=== PATIENT | male | born 1945 | race Caucasian/White ===

== ENCOUNTER 2023-06-17 16:31 | Observation (INO) | payer MEDICARE, SELFPAY ==
--- NOTE | ~2023-06-17 | XR_ITS ---
EXAMINATION: XR chest 1V portable DATE: 06/17/2023 17:41 INDICATION: Altered mental status. TECHNIQUE: A single frontal view of the chest was obtained. COMPARISON: None. FINDINGS: There is no pneumonia, pleural effusion, or pneumothorax. The heart size is normal. Surgica l clips in the right upper quadrant are likely from cholecystectomy. IMPRESSION: 1. No acute cardiopulmonary disease. Reviewed, dictated and finalized at location E.
--- NOTE | ~2023-06-17 | CT_ITS ---
EXAMINATION: CT brain wo con DATE: 06/17/2023 17:27 INDICATION: Altered mental status. TECHNIQUE: Computed tomography (CT) of the head was performed without intravenous contrast. The mA wa s adjusted according to patient size. Iterative reconstruction technique was employed. The dose-lengt h product was 605.33 mGy-cm. COMPARISON: None FINDINGS: There is acute intraparenchymal hematoma involving the left basal ganglia. There is acute i ntraventricular hematoma in the lateral ventricles, third ventricle, and fourth ventricle. There are scattered areas of low attenuation in the cerebral white matter. There are old lacunar infarcts in th e bilateral basal ganglia, dai, and left thalamus. The ventricles are normal in size for the degree of brain volume loss. There is mild mucosal thickening in the ethmoid sinuses. The mastoid air cells are normal. There is cerumen in the external auditory canals. There are likely changes of ocular lens replacement surgeries. IMPRESSION: 1. Acute intraparenchymal hematoma in the left basal ganglia with extension into the ventricles. 2. Old lacunar infarcts in the bilateral basal ganglia, left thalamus, and dai. 3. Extensive nonspecific cerebral white matter disease, which likely represents chronic small vessel ischemic disease. Reviewed, dictated and finalized at location E. IMPRESSION: 1. Acute intraparenchymal hematoma in the left basal ganglia with extension int o the ventricles. 2. Old lacunar infarcts in the bilateral basal ganglia, left thalamus, and dai . 3. Extensive nonspecific cerebral white matter disease, which likely represents chronic small vessel ischemic disease.
[2023-06-17 16:31] VITALS: BP 143/77; PULSE 82; RESP 16; TEMP 36.9; O2SAT 97
--- NOTE | 2023-06-17 16:42 | ECG_ITS ---
Measurements Intervals [place] Rate: 78 P: 57 IL: 184 QRS: 80 QRSD: 150 T: 64 QT: 381 QTc: 435 Interpretive Statements SINUS RHYTHM RIGHT BUNDLE BRANCH BLOCK [120+ ms QRS DURATION, UPRIGHT V1, 40+ ms S IN I/aVL/V4/V5/V6] ABNORMAL EKG NO PREVIOUS ECG AVAILABLE FOR COMPARISON Electronically Signed On 06-18-2023 8:26:29 CDT by Oskar Iglesias M.D.
[2023-06-17 16:57] LABS: Hematocrit 42.9 % (42.0-52.0); Hemoglobin 13.7 g/dL (14.0-18.0); Mean Corpuscular HGB Conc 31.9 g/dl (32-36); Mean Corpuscular Volume 97.1 fl (80-100); Mean Platelet Volume 11.5 fl (7.4-10.4); Platelet Count Result 238 k/mm3 (150-375); Red Blood Count 4.42 M/mm3 (4.6-6.20); Red Cell Distribution Width 13.2 % (11.5-14.5); White Blood Count 25.2 K/mm3 (4.5-10.0)
[2023-06-17 17:30] LABS: Alanine Aminotransferase 20 U/L (6-50); Albumin Level 4.2 g/dL (3.5-5.1); Alkaline Phosphatase 50 U/L (38-126); Anion Gap 8 mmol/L (8-16); Aspartate Amino Transferase 39 U/L (17-59); Bilirubin,Total 1.1 mg/dL (0.2-1.3); Blood Urea Nitrogen 28 mg/dL (9-20); Calcium 9.6 mg/dL (8.4-10.2); Carbon Dioxide 24 mmol/L (22-30); Chloride 106 mmol/L (98-107); Estimated Glomerular Filt Rate > 60; Glucose 127 mg/dL (65-110); Potassium 4.5 mmol/L (3.4-5.0); Sodium 138 mmol/L (137-145)
[2023-06-17 17:39] VITALS: BP 160/80; PULSE 92; RESP 21; O2SAT 99
[2023-06-17 17:40] LABS: Band Neutrophils Percent 3 % (0-6); Monocytes Absolute Manual 3.27 K/mm3 (0.1-0.90); Monocytes Percent Manual 13 % (3-9); Neutrophils Absolute Manual 21.42 K/mm3 (1.3-6.7); Neutrophils Percent Manual 82 % (46-73); Platelet Estimate Adequate (Adequate); Total Cells Counted 100
[2023-06-17 17:41] LABS: Hypochromasia 1+ (NORMAL); Schistocytes None Seen (NORMAL)
[2023-06-17] MEDS: SODIUM CHLORIDE 0.9% IV 1,000 ML 999 ML IV CONT (17:42)
[2023-06-17] MEDS: levETIRAcetam 1000MG/NACL100ML 1,000 MG/100 ML BAG 400 MG IVPB (17:43)
[2023-06-17] MEDS: LABETALOL HCL INJ 100 MG/20 ML VIAL 10 MG IV PUSH (17:43)
[2023-06-17] MEDS: ONDANSETRON INJ 4 MG/2 ML VIAL IV PUSH (17:43)
[2023-06-17 17:52] VITALS: BP 127/68; PULSE 69; RESP 19; O2SAT 99
--- NOTE | 2023-06-17 18:29 | ED.GENADULT ---
HPI - General Adult General Chief complaint: Weakness Stated complaint: weakness Time Seen by Provider: 06/17/23 16:51 History of Present Illness HPI narrative: This is a 77-year-old male, with recent development of dementia, hypertension and hyperlipidemia, brought in to the emergency department for multiple falls at home. The patient's sister, who is at bedside notes over the past several weeks, the patient has become progressively more confused and weak at home. He has fallen multiple times, including twice today. The patient's sister states she is no longer able to safely care for the patient at home and requests assistance. The patient denies pain but complains of some nausea. Related Data Home Medications Medication Instructions Recorded Confirmed aspirin 81 mg tablet,delayed 81 mg PO DAILY 07/09/19 05/22/23 release (Adult Low Dose Aspirin) multivitamin 1 tablet PO DAILY 07/09/19 05/22/23 Allergies Allergy/AdvReac Type Severity Reaction Status Date / Time No Known Allergies Allergy Mild Verified 05/20/23 11:18 Review of Systems Review of Systems: Unable to obtain review of systems due to patient's altered mental status PMFSH Past Medical History Medical History Benign essential hypertension History of CVA (cerebrovascular accident) Type 1 diabetes mellitus without complication Surgical History Surgical History History of appendectomy Social History Social History Smoking status: Never smoker Second hand tobacco smoke exposure: Yes Alcohol intake: never Substance use: unknown Lack of Transportation: No Lack of Food: Never True Current Housing: I Have Housing Concerned About Future Housing: No Difficulty Paying Gas/Electric Bills: No Difficulty Paying for Meds: No Currently Unemployed: No Education: Master's Degree or Higher Difficulty w/ Childcare or Family Care: No Exam Narrative: GENERAL: Well-developed, well-nourished, patient sitting up, having vomited on himself HEAD: Normocephalic, atraumatic. EYES: PERRLA and EOMI. ENT: Nares clear, no rhinorrhea or epistaxis. Mucous membranes moist. Oropharynx without tonsillar hypertrophy exudate or other lesions. NECK: Supple. No midline spine tenderness to palpation, no step-off or crepitus CHEST: Coarse bilateral respirations with good aeration. No respiratory distress. No wheezes rales HEART: Regular rate and rhythm. No murmur heard. Normal peripheral pulses. ABDOMEN: Soft, nontender, nondistended, normal active bowel sounds. EXTREMITIES: Normal range of motion. No edema. SKIN: Warm, dry, no rash. NEURO: Alert and oriented x2 (self and location). Strength 5 -/5 in the right upper and right lower extremity. Strength 5/5 in the upper and lower extremities on the left. Sensation intact bilaterally. Mild ataxia noted. PSYCH: Normal mood and affect. Course Course Emergency Course: 17:45 - On my review of the patient's CT head, there is an obvious intraparenchymal and intraventricular hemorrhage. 17:50 - I received notification from radiologist, Dr. Spivey of the above intracranial hemorrhage. I discussed these findings with the patient who states he does not want to have surgery and does not want to be intubated nor resuscitated, however he remains A&O x2. He sister, who is at bedside and is next of kin, states this is consistent with his wishes. She states it is consistent with his wishes to be made comfort care only and she is unable to care for the patient at home. She requests assistance in hospice placement. She understands the high likelihood of worsening bleeding and potential . She requests no further intervention aside from focusing on comfort care measures. TAMEKA Stewart at bedside to witness. 18:30 - pricing coordinator Mejia, to assist leobardo
--- NOTE | 2023-06-17 18:36 | PCCCNOTE ---
Called by Dr Santana to set up hospice for pt; pt to be admitted under comfort care measures. Pt was non verbal but did answer question appropriately with head knob. Pt OK with hospice referral. LUIS MANUEL contacted and will be able to see pt tomorrow. LUIS MANUEL will call to coordinate a meeting time with family and pt.
--- NOTE | 2023-06-17 18:45 | PC.NURSE ---
Patient resting comfortably at this time.
[2023-06-17 20:05] VITALS: BP 134/74; PULSE 76; RESP 14; TEMP 36.3; O2SAT 97
--- NOTE | 2023-06-17 20:11 | ADMGEN ---
This patient, Monty Pat, was admitted to [facility] Surg Room 332-02. Patient/family oriented to hospital policies and general routines including ID bracelet, bed and alarms, visiting hours, pain management, procedures, bathroom and other care routines, personal items, smoking policy, room service/diet, and visiting hours. Information on how to activate the Rapid Response Team has been discussed. Patient/Family are encouraged to report perceived risks to care and to ask questions if they do not understand what they are told or what they should do.
[2023-06-17 20:32] VITALS: BMI 16.9
[2023-06-18] MEDS: LORazepam INJ (*CRX) 2 MG/ML VIAL IV PUSH ×3 (00:06→18:38)
[2023-06-18] MEDS: ATROPINE SULFATE 1% OPHTH SOLN 5 ML BOTTLE SUBLINGUAL (00:06)
[2023-06-18 00:07] VITALS: PULSE 70
[2023-06-18] MEDS: carvediloL 3.125 MG TABLET PO (00:07)
[2023-06-18 00:45] VITALS: O2SAT 98
--- NOTE | 2023-06-18 02:13 | PM.IMHP ---
H&P: HPI History of Present Illness Date/Time: 06/17/23 20:30 Chief Complaint: Fall. Narrative: This is a 77-year-old male with dementia, hypertension, hyperlipidemia, and insulin-dependent diabetes who presented to the emergency department via EMS from home for evaluation after a ground level fall. The patient is not able to provide any meaningful history and a majority of the following is obtained via a review of his EMR as well as information obtained from his sister. The patient lives with his sister and he has apparently become increasingly confused the last several weeks. He has fallen multiple times this last week, including twice today. She brought him in today as she is having trouble caring for him at home and is requesting assistance. In the ED: Vital signs were stable on arrival. CMP and CBC were pretty unremarkable aside from a WBC count of 25.2. Brain CT showed an acute intraparenchymal hematoma in the left basal ganglia with extension into the ventricles as well as old lacunar infarcts. Dr. Santana spoke with the patient's sister who is power of deputy commonwealth's attorney. The patient had previously told her that he would not want to be resuscitated or intubated and that he would prefer to be kept comfortable in such events. She requests no further intervention aside from focusing on comfort measures. He is being admitted in this setting for hospice consult. Review of Systems Review of Systems: Unable to obtain. [facility] Past Medical History Medical History (Updated 06/19/23 @ 14:55 by Elvia Hebert PA-C) Benign essential hypertension Cerebrovascular accident Dementia Insulin dependent diabetes mellitus Surgical History Surgical History History of appendectomy Family History Family History (Updated 06/19/23 @ 14:55 by Elvia Hebert PA-C) Other Family history unknown Social History Social History (Updated 06/19/23 @ 14:56 by Elvia Hebert PA-C) Social History: Surrogate medical decision maker: Prema Tunisian, sister. Code status: Do not resuscitate. Smoking status: Unknown if ever smoked Second hand tobacco smoke exposure: No Alcohol intake: unknown Substance use: unknown Substance use type: unknown Lack of Transportation: No Lack of Food: Never True Current Housing: I Have Housing Concerned About Future Housing: No Difficulty Paying Gas/Electric Bills: No Difficulty Paying for Meds: No Currently Unemployed: No Education: Master's Degree or Higher Difficulty w/ Childcare or Family Care: No Additional living arrangements comments: Lives with sister in [place]. Additional occupation/education comments: Retired teacher. Spiritual care concerns: No Meds Home Medications and Allergies Home Medications Medication Instructions Recorded Confirmed Type aspirin 81 mg tablet,delayed 81 mg PO DAILY 07/09/19 06/17/23 History release (Adult Low Dose Aspirin) multivitamin 1 tablet PO DAILY 07/09/19 06/17/23 History atorvastatin 40 mg tablet 40 mg PO DAILY #90 tabs 05/20/23 06/17/23 Rx carvedilol 3.125 mg tablet 3.125 mg PO Q12H #180 tabs 05/20/23 06/17/23 Rx enalapril maleate 10 mg tablet 10 mg PO DAILY #90 tabs 05/20/23 06/17/23 Rx insulin aspar prot-insulin aspart 12 unit subcut BID 06/17/23 06/17/23 History 100 unit/mL (70-30) subcutaneous pen (Novolog Mix 70-30FlexPen U-100) Allergies Allergy/AdvReac Type Severity Reaction Status Date / Time No Known Allergies Allergy Mild Verified 05/20/23 11:18 Vital Signs Vital Signs - 24 hr 06/17/23 16:31 06/17/23 17:39 06/17/23 17:52 Temperature 98.4 F Pulse Rate 82 92 69 Respiratory Rate 16 21 H 19 Blood Pressure 143/77 H 160/80 H 127/68 Pulse Oximetry 97 99 99 Oxygen Delivery Room Air 06/17/23 20:05 06/18/23 00:07 Temperature 97.3 F L Pulse Rate 76 70 Respiratory Rate 14 Blood Pressure 134/74 Pulse Oximetry 97 Ox
[2023-06-18 05:39] VITALS: BP 153/83; PULSE 98; RESP 14; TEMP 36.2; O2SAT 97
[2023-06-18 09:01] VITALS: PULSE 62
--- NOTE | 2023-06-18 09:39 | PM.IMPN ---
Progress Note: A&P Assessment and Plan (1) Dementia: Code(s): F03.90 - Unspecified dementia, unspecified severity, without behavioral disturbance, psychotic disturbance, mood disturbance, and anxiety Status: Acute Assessment and Plan: see 2 (2) Frequent falls: Code(s): R29.6 - Repeated falls Status: Acute Assessment and Plan: 2 ground level falls yesterday at home. Lives with his sister. Brain CT showed intraparenchymal hematoma without extension into the ventricles. Family states patient's wishes were for DNR/DNI No further medical treatment at this time. Initiate comfort measures Care coordination to assist with hospice consult which is appreciated. (3) Intraparenchymal hematoma of brain: Code(s): S06.33AA - Contusion and laceration of cerebrum, unspecified, with loss of consciousness status unknown, initial encounter Status: Acute Assessment and Plan: see 2 Subjective Date/time seen: 06/18/23 09:39 Interval history: HPi obtained from chart, This is a 77-year-old male with dementia, hypertension, hyperlipidemia, and insulin-dependent diabetes who presented to the emergency department via EMS from home for evaluation after a ground level fall. The patient is not able to provide any meaningful history and a majority of the following is obtained via a review of his EMR as well as information obtained from his sister. The patient lives with his sister and he has apparently become increasingly confused the last several weeks. He has fallen multiple times this last week, including twice today. She brought him in today as she is having trouble caring for him at home and is requesting assistance. In the ED: Vital signs were stable on arrival. CMP and CBC were pretty unremarkable aside from a WBC count of 25.2. Brain CT showed an acute intraparenchymal hematoma in the left basal ganglia with extension into the ventricles as well as old lacunar infarcts. Dr. Santana spoke with the patient's sister who is power of energy attorney. The patient had previously told her that he would not want to be resuscitated or intubated and that he would prefer to be kept comfortable in such events. She requests no further intervention aside from focusing on comfort measures. He is being admitted in this setting for hospice consult. Interval history, 06/18-patient is seen lying in bed with his eyes closed. He appears agitated and is removing his gown. It seems that he has had an episode urinary incontinence. I attempted to replace his gown however he did not seem to want to wear it. Ask him to open his eyes for me and it looks like he attempts to but is unable. I asked him to squeeze my hand if he can hear me which he does and then he continues to intermittently squeeze. He does not appear in acute distress. Nursing is attempting to place a Parham catheter for comfort. Review of Systems Review of Systems: ROS unobtainable: Yes unobtainable due to medical condition and unobtainable due to mental status Exam Narrative: General: small for stature, well developed, thin HEENT: normocephalic, atraumatic. Mucous membranes moist. Bilateral sclera anicteric, no conjunctival injection. Neck supple without JVD, lymphadenopathy, or bruit. Respiratory: clear to auscultation bilaterally. No rales/rhonic/wheezes. Cardiovascular: Regular rate and rhythm, normal S1-S2 upon auscultation. No murmurs, rubs, or clicks. PMI is nondisplaced, capillary re-fill less than 3 second. Abdomen: Soft, flat, no pulsatile masses, non-distended and non-tender. No rebound, no guarding. No CVA tenderness, no hepatosplenomegaly. Bowel sounds present to all four quadrants. No high pitch or tinkling sounds, resonant to percussion. Extremities: No cyanosis, clubbing, or edema present. Pulses are palpable 2/2. Active ROM to all four extremities. Neuro: Lethargic, does not open eyes upon commands but will squeeze my hand when prompt
--- NOTE | 2023-06-18 11:01 | PC.NURSE ---
Due to anatomy Parham placement not possible.
[2023-06-18 16:45] LABS: Glucose Point of Care 130 mg/dl (65-105)
[2023-06-18 20:24] VITALS: BP 173/87; PULSE 84; RESP 16; TEMP 36.8; O2SAT 94
[2023-06-19 08:00] VITALS: PULSE 58; RESP 14; O2SAT 96
[2023-06-19 08:35] VITALS: BP 182/89; PULSE 70; RESP 14; TEMP 36.7; O2SAT 96
--- NOTE | 2023-06-19 09:05 | PM.IMPN ---
Progress Note: A&P Assessment and Plan (1) Dementia: Code(s): F03.90 - Unspecified dementia, unspecified severity, without behavioral disturbance, psychotic disturbance, mood disturbance, and anxiety Status: Acute Assessment and Plan: see 2 (2) Frequent falls: Code(s): R29.6 - Repeated falls Status: Acute Assessment and Plan: 2 ground level falls yesterday at home. Lives with his sister. Brain CT showed intraparenchymal hematoma without extension into the ventricles. Family states patient's wishes were for DNR/DNI No further medical treatment at this time. Initiate comfort measures Care coordination to assist with hospice consult which is appreciated. [facility] to assess for inpatient hospice vs home hospice vs snf hospice (3) Intraparenchymal hematoma of brain: Code(s): S06.33AA - Contusion and laceration of cerebrum, unspecified, with loss of consciousness status unknown, initial encounter Status: Acute Assessment and Plan: see 2 Subjective Date/time seen: 06/19/23 09:05 Interval history: HPi obtained from chart, This is a 77-year-old male with dementia, hypertension, hyperlipidemia, and insulin-dependent diabetes who presented to the emergency department via EMS from home for evaluation after a ground level fall. The patient is not able to provide any meaningful history and a majority of the following is obtained via a review of his EMR as well as information obtained from his sister. The patient lives with his sister and he has apparently become increasingly confused the last several weeks. He has fallen multiple times this last week, including twice today. She brought him in today as she is having trouble caring for him at home and is requesting assistance. In the ED: Vital signs were stable on arrival. CMP and CBC were pretty unremarkable aside from a WBC count of 25.2. Brain CT showed an acute intraparenchymal hematoma in the left basal ganglia with extension into the ventricles as well as old lacunar infarcts. Dr. Santana spoke with the patient's sister who is power of managing attorney. The patient had previously told her that he would not want to be resuscitated or intubated and that he would prefer to be kept comfortable in such events. She requests no further intervention aside from focusing on comfort measures. He is being admitted in this setting for hospice consult. Interval history, 06/18-patient is seen lying in bed with his eyes closed. He appears agitated and is removing his gown. It seems that he has had an episode urinary incontinence. I attempted to replace his gown however he did not seem to want to wear it. Ask him to open his eyes for me and it looks like he attempts to but is unable. I asked him to squeeze my hand if he can hear me which he does and then he continues to intermittently squeeze. He does not appear in acute distress. Nursing is attempting to place a Parham catheter for comfort. 06/19-patient resting in bed. He does not open his eyes to my voice or tactile stimulation. In no acute distress. Workup has been initiated for hospice at home versus hospice in a facility. Appreciate care coordination assistance with this. Review of Systems Review of Systems: ROS unobtainable: Yes unobtainable due to medical condition Exam Narrative: General: small for stature, well developed, thin HEENT: normocephalic, atraumatic. Mucous membranes moist. Bilateral sclera anicteric, no conjunctival injection. Neck supple without JVD, lymphadenopathy, or bruit. Respiratory: clear to auscultation bilaterally. No rales/rhonic/wheezes. Cardiovascular: Regular rate and rhythm, normal S1-S2 upon auscultation. No murmurs, rubs, or clicks. PMI is nondisplaced, capillary re-fill less than 3 second. Abdomen: Soft, flat, no pulsatile masses, non-distended and non-tender. No rebound, no guarding. No CVA tenderness, no hepatosplenomegaly. Bowel sounds present to all
[2023-06-19 20:31] LABS: Glucose Point of Care 187 mg/dl (65-105)
[2023-06-19 20:44] VITALS: BP 175/92; PULSE 76; RESP 26; TEMP 37.2; O2SAT 98
[2023-06-20 09:44] VITALS: BP 130/72; PULSE 88; RESP 18; TEMP 36.5; O2SAT 99
--- NOTE | 2023-06-20 13:26 | PM.IMPN ---
Progress Note: A&P Assessment and Plan (1) Dementia: Code(s): F03.90 - Unspecified dementia, unspecified severity, without behavioral disturbance, psychotic disturbance, mood disturbance, and anxiety Status: Acute Assessment and Plan: see 2 (2) Frequent falls: Code(s): R29.6 - Repeated falls Status: Acute Assessment and Plan: 2 ground level falls yesterday at home. Lives with his sister. Brain CT showed intraparenchymal hematoma without extension into the ventricles. Family states patient's wishes were for DNR/DNI No further medical treatment at this time. Initiate comfort measures Care coordination to assist with hospice consult which is appreciated. Awaiting accepting facility. [facility] to assess for home hospice vs snf hospice (3) Intraparenchymal hematoma of brain: Code(s): S06.33AA - Contusion and laceration of cerebrum, unspecified, with loss of consciousness status unknown, initial encounter Status: Acute Assessment and Plan: see 2 Subjective Date/time seen: 06/20/23 13:26 Interval history: HPi obtained from chart, This is a 77-year-old male with dementia, hypertension, hyperlipidemia, and insulin-dependent diabetes who presented to the emergency department via EMS from home for evaluation after a ground level fall. The patient is not able to provide any meaningful history and a majority of the following is obtained via a review of his EMR as well as information obtained from his sister. The patient lives with his sister and he has apparently become increasingly confused the last several weeks. He has fallen multiple times this last week, including twice today. She brought him in today as she is having trouble caring for him at home and is requesting assistance. In the ED: Vital signs were stable on arrival. CMP and CBC were pretty unremarkable aside from a WBC count of 25.2. Brain CT showed an acute intraparenchymal hematoma in the left basal ganglia with extension into the ventricles as well as old lacunar infarcts. Dr. Santana spoke with the patient's sister who is power of title attorney. The patient had previously told her that he would not want to be resuscitated or intubated and that he would prefer to be kept comfortable in such events. She requests no further intervention aside from focusing on comfort measures. He is being admitted in this setting for hospice consult. Interval history, 06/18-patient is seen lying in bed with his eyes closed. He appears agitated and is removing his gown. It seems that he has had an episode urinary incontinence. I attempted to replace his gown however he did not seem to want to wear it. Ask him to open his eyes for me and it looks like he attempts to but is unable. I asked him to squeeze my hand if he can hear me which he does and then he continues to intermittently squeeze. He does not appear in acute distress. Nursing is attempting to place a Parham catheter for comfort. 06/19-patient resting in bed. He does not open his eyes to my voice or tactile stimulation. In no acute distress. Workup has been initiated for hospice at home versus hospice in a facility. Appreciate care coordination assistance with this. 06/20-No acute events overnight. Patient appears comfortable and is resting. Sister is at bedside when I visit. I discussed hospice in an outpatient setting as imminent is not expected at this time. Review of Systems Review of Systems: ROS unobtainable: Yes unobtainable due to medical condition Exam Narrative: General: Small, thin, chronically ill-appearing gentleman lying on his right side in bed. Weight: 36.7 kg. BMI: 16.9. HEENT: PERRL, EOMI. Sclera anicteric. Oral mucosa appears tacky though he did not open his mouth much for examination. Neck: Supple. No midline vertebral tenderness. Respiratory: Lungs are clear to auscultation bilaterally. Cardiovascular: Regular rate and rhythm with S1-S2. G
[2023-06-20 19:55] VITALS: O2SAT 99
[2023-06-20 23:16] VITALS: PULSE 84; RESP 12; TEMP 36.5; O2SAT 96
[2023-06-21 02:35] VITALS: BP 167/88; RESP 12
[2023-06-21 04:25] VITALS: BP 133/89; PULSE 64
--- NOTE | 2023-06-21 08:57 | PM.DS ---
DS: Admitting Diagnosis Discharge Date 06/21 Admitting Diagnosis [facility] DS: Discharge Diagnosis Discharge Diagnosis (1) Dementia: Code(s): F03.90 - Unspecified dementia, unspecified severity, without behavioral disturbance, psychotic disturbance, mood disturbance, and anxiety Status: Acute Assessment and Plan: see 2 (2) Frequent falls: Code(s): R29.6 - Repeated falls Status: Acute Assessment and Plan: 2 ground level falls yesterday at home. Lives with his sister. Brain CT showed intraparenchymal hematoma without extension into the ventricles. Family states patient's wishes were for DNR/DNI No further medical treatment at this time. Initiate comfort measures Care coordination to assist with hospice consult which is appreciated. Awaiting accepting facility. [facility] to assess for home hospice vs snf hospice (3) Intraparenchymal hematoma of brain: Code(s): S06.33AA - Contusion and laceration of cerebrum, unspecified, with loss of consciousness status unknown, initial encounter Status: Acute Assessment and Plan: see 2 DS: Summary Hospital Course Hospital Course: This is a 77-year-old male with dementia, hypertension, hyperlipidemia, and insulin-dependent diabetes who presented to the emergency department via EMS from home for evaluation after a ground level fall. The patient is not able to provide any meaningful history and a majority of the following is obtained via a review of his EMR as well as information obtained from his sister. The patient lives with his sister and he has apparently become increasingly confused the last several weeks. He has fallen multiple times this last week, including twice today. She brought him in today as she is having trouble caring for him at home and is requesting assistance. In the ED: Vital signs were stable on arrival. CMP and CBC were pretty unremarkable aside from a WBC count of 25.2. Brain CT showed an acute intraparenchymal hematoma in the left basal ganglia with extension into the ventricles as well as old lacunar infarcts. Dr. Santana spoke with the patient's sister who is power of customs consultant. The patient had previously told her that he would not want to be resuscitated or intubated and that he would prefer to be kept comfortable in such events. She requests no further intervention aside from focusing on comfort measures. He is being admitted in this setting for hospice consult. Interval history, 06/18-patient is seen lying in bed with his eyes closed.? He appears agitated and is removing his gown.? It seems that he has had an episode urinary incontinence.? I attempted to replace his gown however he did not seem to want to wear it.? Ask him to open his eyes for me and it looks like he attempts to but is unable.? I asked him to squeeze my hand if he can hear me which he does and then he continues to intermittently squeeze.? He does not appear in acute distress.? Nursing is attempting to place a Parham catheter for comfort. 06/19-patient resting in bed.? He does not open his eyes to my voice or tactile stimulation.? In no acute distress.? Workup has been initiated for hospice at home versus hospice in a facility.? Appreciate care coordination assistance with this. 06/20-No acute events overnight. Patient appears comfortable and is resting. Sister is at bedside when I visit. I discussed hospice in an outpatient setting as imminent is not expected at this time. Time Spent with Patient Time attestation: Total time spent providing and/or coordinating discharge services: 34 Exam Narrative: General: Small, thin, chronically ill-appearing gentleman lying on his right side in bed. Weight: 36.7 kg. BMI: 16.9. HEENT: PERRL, EOMI. Sclera anicteric. Oral mucosa appears tacky though he did not open his mouth much for examination. Neck: Supple. No midline vertebral tenderness. Respiratory: Lungs are clear to auscultation bilaterally. Cardiovascul
[2023-06-21] MEDS: LORazepam INJ (*CRX) 2 MG/ML VIAL IV PUSH (11:28)
[2023-06-21 12:16] LABS: SARS-CoV-2 RNA PCR Negative (Negative)
[2023-06-21 14:18] VITALS: BP 158/85; PULSE 87; RESP 14; TEMP 36.6; O2SAT 98
== END 2023-06-21 16:00 | disposition hospice, home (50) ==
LOC: ANHED 18:42 → ANH3MEDSUR 06-20 14:52
PROVIDERS: Nurse Practitioner Acute Care; Admitting Provider Student in an Organized Health Care Education/Training Program; Emergency Provider Preventive Medicine Aerospace Medicine; PCP Physician Assistant; Visit Provider Chiropractor
DX: F03.90 Unspecified dementia, unspecified severity, without behavioral disturbance, psychotic disturbance, mood disturbance, and anxiety (principal); R29.6 Repeated falls; S06.33AA Contusion and laceration of cerebrum, unspecified, with loss of consciousness status unknown, initial encounter; R90.82 White matter disease, unspecified; R41.82 Altered mental status, unspecified; I10 Essential (primary) hypertension; D72.829 Elevated white blood cell count, unspecified; E78.5 Hyperlipidemia, unspecified; E11.9 Type 2 diabetes mellitus without complications; R53.1 Weakness; R94.31 Abnormal electrocardiogram [ECG] [EKG]; Z66 Do not resuscitate; Z20.822 Contact with and (suspected) exposure to COVID-19; Z86.73 Personal history of transient ischemic attack (TIA), and cerebral infarction without residual deficits; Z79.4 Long term (current) use of insulin; Z79.82 Long term (current) use of aspirin; Z79.899 Other long term (current) drug therapy
CPT/HCPCS: 36415; 70450; 71045; 80053; 82948; 85025; 87635; 93005; 96361; 96365; 96375; 96376; 99285; A9270; G0378; J1953; J2060; J2405; J7030